=== PATIENT | female | born 1980 ===

== ENCOUNTER 2017-02-27 10:49 | Inpatient (IN) | payer MEDICAID, SELFPAY ==
[2017-02-27] MEDS: Lactated Ringer's 1,000 ML IV SCH (11:10)
[2017-02-27 11:30] VITALS: BMI 36.5
[2017-02-27 11:56] VITALS: BP 128/80; PULSE 94; RESP 18; TEMP 97.8; O2SAT 100
[2017-02-27 12:51] LABS: HEMOGLOBIN 13.4 g/dL (12.0-16.0); MEAN CELL VOLUME 91.4 fl (81.0-99.0); MEAN CORPUSCULAR HEMOGLOBIN 31.8 pg (27.0-31.0); MEAN CORPUSCULAR HGB CONC 34.8 g/dL (33.0-37.0); RBC 4.21 Mil/uL (3.80-5.20); RED CELL DISTRIBUTION WIDTH 14.8 % (11.5-14.5); WHITE BLOOD COUNT 11.4 K/uL (4.8-10.8)
[2017-02-27] MEDS ORDERED: Lactated Ringer's 1,000 ML IV SCH (14:45)
[2017-02-27] MEDS ORDERED: ePHEDrine 50 mg/ml Inj ONE (14:51)
[2017-02-27] MEDS ORDERED: Phenylephrine 10 mg/ml Inj ONE (14:51)
[2017-02-27] MEDS ORDERED: Oxytocin 30 units/LR 500ML 30 U/500 ML BAG IV ONE ×2 (14:56→16:00)
[2017-02-27] MEDS ORDERED: ceFAZolin 2 GM in Sodium Chloride 0.9% 100 ML IVPB ONE (15:00)
--- NOTE | 2017-02-27 15:22 | OBADHP ---
Datetime: 02/27/2017 14:11 IP Chief Complaint Other: Macrosomia Admit Comment, IP Provider: 36 yo G1 at 39+3 wks w/ EDC 03/03/2017 by u/s who was sent from the offi ce of the [facility] for induction for macrosomia. The estimated weight 2 weeks ago was 8#12. THis is complicated by an early elevated 1 hr glucola . Pt has had 2 nl 3 hr GTTs. Pt also has a placental chorioangioma. Pt speaks [place]. Kylie Hurley RN translated. PMH: Healthy PSH: None All: NKDA Soc hx: Pt denies tobacco, alcohol, and illicit drug use Family hx: MGM-DM Subsorter hx: reg periods, denies STDs, denies any abn paps PE: AFVSS Gen'l: pt appears comfortable lying in bed Abd: soft, NT, gravid Ext: NT A/P: 36 yo G1 at 39+3 wks w/ suspected macrosomia Discussed risks of shoulder dystocia, ie, brachial plexus injury, Pt consented for section. All questions answered. Will proceed w/ cesrean section. Extremities - PN: Normal Abdomen - PN: Normal General - PN: Normal FHR - Baseline A Provider: 130 Vital Signs Provider: Reviewed NICHD Variability Prov Fetus A: Moderate 6-25bpm NICHD Accel Fetus A IP Provider: 15X15 FHR Category Provider Fetus A: Category I NICHD Decel Fetus A IP Provider: None Genitourinary Exam: Not Done IP Adm Impression: Term, intrauterine IP Admit Plan: Initiate Section protocol
--- NOTE | 2017-02-27 16:03 | DELATT ---
Datetime: 02/27/2017 11:10 Del Note Departure Status: Nursery Del Note Time: 40 Del Note Status: FT female, LGA, PCS. ABG 05/09. Del Note Reason for Attend Other: PCS, macrosomia. Del Note Interventions: Assessment; Stimulation; Drying Del Note Reason for Attending: Section HENRIQUE/NICU Del Atten Note Adm
--- NOTE | 2017-02-27 16:05 | NBADN ---
Datetime: 02/27/2017 16:03 Nsy Prov Gen Appearance: Within Normal Limits Nsy Prov Gen Appearance: Within Normal Limits Nsy Prov Skin: Within Normal Limits Nsy Prov Neuro: Normal Tone; [place]; Grasp; Root; Suck Nsy Prov Musculoskeletal: Within Normal Limits; Full Range of Motion; Spontaneous Movement All Extre mities; Intact Clavicles; Clavicles without Crepitus; Gluteal Folds Symmetrical; Spine Within Normal Limits; No Sacral Dimple/Cyst Nsy Prov Head: Normal Fontanelles; Normocephalic; Sutures WNL Nsy Prov EENT: Mouth Within Normal Limits; Ears Within Normal Limits; Eyes Within Normal Limits; Eye s Red Reflex Bilaterally; Nose Within Normal Limits; Face Within Normal Limits Nsy Prov Cardiovascular: Within Normal Limits; Normal Pulses Nsy Prov Respiratory: Within Normal Limits Nsy Prov GI: Within Normal Limits; Soft; Normal Liver; Non Palpable Spleen; Patent Anus Nsy Prov Umbilicus: Within Normal Limits; Three Vessel Cord Nsy Prov : Normal Female Genitalia Nsy Prov Impression: Healthy Term ; Vital Signs Appropriate; Bonding Appropriately; Voiding a nd Stooling Nsy Prov Plan: Continue [place] [facility] Nsy Prov Impression/Plan Details: FT female, LGA, PCS. Datetime: 02/27/2017 11:10 Mother's Rule Inc Maternal Age: Age >=35 at SUSIE not specified Mother's Rule Thalassemia: Thalassemia History not specified Mother's Rule Neural Tube Defect: Neural Tube Defect History not specified Mother's Rule Congenital Heart: Congenital Heart Defect not specified Mother's Rule Down Syndrome: Down Syndrome History not specified Mother's Rule Wisam-Sachs: Wisam-Sachs History not specified Mother's Rule Vincenzo: Vincenzo History not specified Mother's Rule Familial Dysauto: Familial Dysautonomia History not specified Mother's Rule Sickle Cell: Sickle Cell Disease/Trait History not specified Mother's Rule Hemophilia: Hemophilia/Blood Disorder History not specified Mother's Rule Muscular Dystrophy: Muscular Dystrophy History not specified Mother's Rule Cystic Fibrosis: Cystic Fibrosis History not specified Mother's Rule Cascade's Chor: Cascade's Chorea History not specified Mother's Rule Mental Retardation: Mental Retardation/Autism History not specified Mother's Rule Fragile X: Fragile X Testing History not specified Mother's Rule Oth Inherited DO: Other Inherited/Chromosomal Disorders not specified Mother's Rule Maternal Metabolic: Maternal Metabolic History not specified Mother's Rule FOB Defects: Pt Father or FOB Defect History not specified Mother's Rule Hx Stillborn MBL: Loss/Stillborn History not specified Mother's Rule Other Genetic Hx: Other Genetic History not specified Mother's Rule Drugs/Medications: Drugs/Medications History not specified Mother's Rule Gonorrhea: Gonorrhea History Not Specified Mother's Rule Chlamydia: Chlamydia History not specified Mother's Rule Syphilis: Syphilis History not specified Mother's Rule HIV/AIDS Exp: HIV/Aids Exposure not specified Mother's Rule HPV: Human Papillomavirus History not specified Mother's Rule Genital Herpes: Genital Herpes not specified Mother's Rule TB: Tuberculosis History not specified Mother's Rule Hepatitis: Hepatitis History Not Specified Mother's Rule Rash or Viral Ill: Rash or Viral Illness History not specified Mother's Rule Diabetes: Diabetes History not specified Mother's Rule Hypertension MBL: History of Hypertension Not Specified Mother's Rule Heart Disease: Heart Disease History not specified Mother's Rule Autoimmune: Autoimmune Disorder History not specified Mother's Rule Kidney Disease: History of Kidney Disease/UTI not specified Mother's Rule Neurologic: Neurologic/Epilepsy Disorders not specified Mother's Rule Psych Disorders: Psychiatric Disorder History not specified Mother's Rule Depression/PP Dep: Depression/ Depression History not specified Mother's Rule Hepaitis/tLiver: History of Hepatitis/Liver Disease not specified Mother's Rule Varicos/Phlebitis: Varicosities/Phlebitis History Not Specified Mother's Rule Thyroid Dysfunct: Thyroid Dysfunction not specified Mother's Rule Trauma/Violence: Trauma/Violence History Not Specified Mother's Rule Blood Transfusion: Blood Transfusion History not specified Mother's Rule Sensitization: D (Rh) Sensitization not specified Mother's Rule Pulmonary: Pulmonary (Asthma, TB) History not specified Mother's Rule Breast: Breast History not specified Mother's Rule Fence Installer Surgery: Fence Installer Surgery Hx not specified Mother's Rule Hosp/Surgery: Hospitalization/Surgery History not specified Mother's Rule Anesthetic Comp: Anesthetic Complications Hx not specified Mother's Rule Abnormal Pap: Abnormal Pap Smear not specified Mother's Rule Uterine Anomaly: Uterine Anomaly/SHAAN not specified Mother's Rule Infertility: Infertility Not Specified Mother's Rule ART Treatment: ART Treatment History not specified Mother's Rule Other Med Disease: Other Medical Diseases History not specified Mother's Rule Family History: Significant Family History not specified
[2017-02-27] MEDS ORDERED: Erythromycin 0.5% Ophth Oint 1 APPLIC/3.5 G OU ONE (16:06)
[2017-02-27] MEDS ORDERED: Vitamin A/D oint 60G TP PRN (16:06)
[2017-02-27] MEDS ORDERED: Phytonadione 1 mg/0.5 ml Inj (Neonatal) IM ONE (16:06)
[2017-02-27] MEDS ORDERED: Brill Green/Gentian Viol/Profl 0.65 ML SOL TP ONE (16:06)
[2017-02-27] MEDS ORDERED: DiphenhydrAMINE 50 mg/ml Inj IVP PRN ×2 (16:31)
[2017-02-27] MEDS ORDERED: HYDROmorphone 0.5 mg/0.5 ml ISec IVP PRN (16:31)
--- NOTE | 2017-02-27 17:19 | OBDS ---
DELIVERY PERSONNEL Delivery Doctor: Darrion Sidhu MD Scrub Nurse: Rich Sanchez OBT Action Finisher: Romie Patrick RN Anesthesiologist: Helder Cotto MD Resident: NESTOR MATERNAL INFORMATION Medications in Delivery: pITOCIN 30U/500lr Placenta Cultured: Yes Provider Comments: Pre-op dx: 36 yo G1 at 39+3 wks w/ suspected macrosomia Post-op dx: Same Procedure: Primary low transverse section Surgeon: Nahum Cafe Helper: Drs. Josue Weston, PGY-2 Anesthesia: Dr. Cotto Anesthesia: Spinal Findings: Viable female infant delivered through clear fluid at 15:58. Nuchal cord x 1 easily red uced. Apgars 9 and 9. Wt 4330 gms. Nl appearing uterus, tubes and ovaries. Complications: None EBL: 900mL LABOR SUMMARY EDC: 03/03/2017 00:00 No. Babies in Womb: 0 LABOR INFORMATION Onset of Labor: NIL Group B Beta Strep: Negative STAGES OF LABOR Stage 3 hrs: 0 Stage 3 min: 1 CSECTION DELIVERY Primary Indication: Other CSection Urgency: Elective Labor: No Labor CSection Incision: Lower Uterine Transverse BABY A INFORMATION Delivery Date/Time: 02/27/2017 15:58 Method of Delivery: Born in Route : No : N/A Forceps: N/A Vacuum Extraction: N/A Shoulder Dystocia : No SHOULDER DYSTOCIA BABY A Delivery Date/Time: 02/27/2017 15:58 PRESENTATION/POSITION BABY A Presentation: Cephalic PLACENTA INFORMATION BABY A Placenta Delivery Time : 02/27/2017 15:59 Placenta Method of Delivery: Manual Removal Placenta Status: Delivered SCORES BABY A Heart Rate 1 min: >100 bpm Resp Effort 1 min: Good Cry Reflex Irritability 1 min: Cough or Sneeze or Pulls Away Muscle Tone 1 min: Active Motion Color 1 min: Body [place], Extremities Blue SCORE 1 MIN: 9 Heart Rate 5 min: >100 bpm Resp Effort 5 min: Good Cry Reflex Irritability 5 min: Cough or Sneeze or Pulls Away Muscle Tone 5 min: Active Motion Color 5 min: Body [place], Extremities Blue SCORE 5 MIN: 9 INFORMATION BABY A Gestational Age at Delivery: 39.3 Gestational Status: Term Outcome : Liveborn Infant Condition : Stable Infant Sex: Female IDENTIFICATION/MEDS BABY A ID Band Number: [id number] ID Band Location: Left Leg; Left Arm WEIGHT/LENGTH BABY A Infant Birthweight (gms): 4330 Weight (lb): 9 Infant Weight (oz): 9 CORD INFORMATION BABY A No. Cord Vessels: 3 Nuchal Cord : N/A Cord Blood Taken: Yes Suction: None; Mouth ASSESSMENT BABY A Infant Complications: None Physical Findings at Delivery: Within Normal Limits Infant Respirations: Appears Normal Brand Manager/ALS Called : No Care By: Dr. Cuenca Transferred To: [facility]
[2017-02-28 07:32] LABS: BASO % 0.1 % (0.0-2.0); EOS % 0.2 % (0.0-4.0); HEMOGLOBIN 12.3 g/dL (12.0-16.0); LYMPH # 0.9 K/uL (1.0-4.3); LYMPH % 6.2 % (20.0-40.0); MEAN CORPUSCULAR HEMOGLOBIN 32.1 pg (27.0-31.0); MEAN CORPUSCULAR HGB CONC 34.9 g/dL (33.0-37.0); MEAN PLATELET VOLUME 8.6 fl (7.2-11.7); MONO # 0.7 K/uL (0.0-0.8); MONO % 4.5 % (0.0-10.0); NEUT # 13.1 K/uL (1.8-7.0); NRBC % 0.1 % (0.0-0.0); PLATELET COUNT 167 K/uL (130-400); RBC 3.84 Mil/uL (3.80-5.20); RED CELL DISTRIBUTION WIDTH 14.7 % (11.5-14.5); WHITE BLOOD COUNT 14.8 K/uL (4.8-10.8)
[2017-02-28] MEDS: Lactated Ringer's 1,000 ML IV SCH (08:43)
--- NOTE | 2017-02-28 09:32 | OBPPN ---
Datetime: 02/28/2017 05:41 PP Pain Prov: Within normal limits PP Nausea Prov: Denies PP Flatus Prov: Yes PP BM Prov: No PP Breasts Prov: Normal PP Heart Prov: Normal PP Lungs Prov: Normal PP Abdomen/Uterus Prov: Normal PP Lochia Prov: Normal PP Vulva/Perineum Prov: Not Done PP CVA Tenderness Prov: Not Done PP Extremities Prov: Normal PP C/S Incision Prov: Normal PP Progress Prov: Normal PP Impression Prov: Normal progression PP Plan Prov: Continue present management PP Progress Note Prov: 36 y/o now seen and examined at bedside. Patient had uneventful overnig ht. Patient reports mild pelvic pain controlled w/ pain meds. OOB/Ambulating w/o dizziness. Breast /bottle feeding w/o difficulty. Tolerating PO diet well. Lochia is less than menses in volume. Voi ding freely w/ no blood noted. Reports no bowel movement. Denies fevers, chills, n/v/d, CP/SOB, lig htheadedness and calf pain. PE: GEN: A_O, resting comfortably in bed, NAD Lung: CTA B/L, no wheezing, rhonchi, or rales CVS: S1, S2 wnl, RRR Abd: +BS, firm fundus below umbilicus. Incision dressed, dry, clean, and intact. No induration, redness, or fluctuation EXT: no edema, negative Moni's, calves non-tender Assessment: 36 y/o now s/p on 02/27/2017 @ 15:58 tolerating pain w/ medication, kellie erating oral intake, adequate urine output, doing well on POD1. Plan: Percocet 5/325 mg 1-2 tabs PO Q6h prn for mod/severe pain. Ibuprofen 600 mg 1 tab Q6h PO pr n for mild pain. Encourage breast feeding and ambulation. Emigdio Patterson M.D. Garage Supervisor PGY-1 [facility] ADDENDUM: PT seen _ examined by me. tolerated breakfast well Agree w/ above assessment and plan. will d/c panama hat blocker and begin percocet _ motrin d/c arec IP PP Procedures: None Vital Signs Provider PP: Reviewed; Within Normal Limits Vital Signs Provider Details PP: hgb 12.3
[2017-02-28] MEDS ORDERED: Oxycodone/Acetaminophen 5/325 mg Tab PO PRN ×2 (09:36)
[2017-02-28 10:15] LABS: ANISOCYTOSIS SLIGHT; LARGE PLATELETS PRESENT; LYMPHOCYTE 9 % (20-50); MONOCYTE 3 % (0-10); NEUTROPHIL 88 % (42-75); PLATELET ESTIMATE NORMAL (NORMAL); TEARDROP CELLS SLIGHT; TOTAL CELLS COUNTED 100
[2017-02-28 10:16] LABS: OVALOCYTES SLIGHT
[2017-02-28] MEDS ORDERED: Hepatitis B Vaccine PED 10 mcg/0.5 mL Inj IM ONE (21:00)
--- NOTE | 2017-02-28 21:04 | OBDS ---
DELIVERY PERSONNEL Delivery Doctor: Darrion Sidhu MD Scrub Nurse: Rich Sanchez OBT French Drawer: Romie Patrick RN Anesthesiologist: Helder Cotto MD Resident: NESTOR MATERNAL INFORMATION Medications in Delivery: pITOCIN 30U/500lr Placenta Cultured: Yes Provider Comments: Pre-op dx: 36 yo G1 at 39+3 wks w/ suspected macrosomia Post-op dx: Same Procedure: Primary low transverse section Surgeon: Nahum Senior Chemical Process Engineer: Drs. King and Codie Weston, PGY-2 Anesthesiologist: Dr. Cotto Anesthesia: Spinal Findings: Viable female infant delivered through clear fluid at 15:58. Nuchal cord x 1 easily red uced. Apgars 9 and 9. Wt 4330 gms, 9#9. Nl appearing uterus, tubes and ovaries. Complications: None EBL: 900mL LABOR SUMMARY EDC: 03/03/2017 00:00 No. Babies in Womb: 0 LABOR INFORMATION Onset of Labor: NIL Group B Beta Strep: Negative STAGES OF LABOR Stage 3 hrs: 0 Stage 3 min: 1 CSECTION DELIVERY Primary Indication: Other CSection Urgency: Elective Labor: No Labor CSection Incision: Lower Uterine Transverse BABY A INFORMATION Delivery Date/Time: 02/27/2017 15:58 Method of Delivery: Born in Route : No : N/A Forceps: N/A Vacuum Extraction: N/A Shoulder Dystocia : No SHOULDER DYSTOCIA BABY A Infant Delivery Date/Time: 02/27/2017 15:58 PRESENTATION/POSITION BABY A Presentation: Cephalic PLACENTA INFORMATION BABY A Placenta Delivery Time : 02/27/2017 15:59 Placenta Method of Delivery: Manual Removal Placenta Status: Delivered SCORES BABY A Heart Rate 1 min: >100 bpm Resp Effort 1 min: Good Cry Reflex Irritability 1 min: Cough or Sneeze or Pulls Away Muscle Tone 1 min: Active Motion Color 1 min: Body [place], Extremities Blue SCORE 1 MIN: 9 Heart Rate 5 min: >100 bpm Resp Effort 5 min: Good Cry Reflex Irritability 5 min: Cough or Sneeze or Pulls Away Muscle Tone 5 min: Active Motion Color 5 min: Body [place], Extremities Blue SCORE 5 MIN: 9 INFORMATION BABY A Gestational Age at Delivery: 39.3 Gestational Status: Term Outcome : Liveborn Condition : Stable Infant Sex: Female IDENTIFICATION/MEDS BABY A ID Band Number: [id number] ID Band Location: Left Leg; Left Arm WEIGHT/LENGTH BABY A Birthweight (gms): 4330 Weight (lb): 9 Weight (oz): 9 CORD INFORMATION BABY A No. Cord Vessels: 3 Nuchal Cord : N/A Cord Blood Taken: Yes Suction: None; Mouth ASSESSMENT BABY A Complications: None Physical Findings at Delivery: Within Normal Limits Respirations: Appears Normal Bread Dough Mixer/ALS Called : No Infant Care By: Dr. Cuenca Transferred To: Nursery
--- NOTE | 2017-03-01 09:03 | OBPPN ---
Datetime: 03/01/2017 08:59 PP Pain Prov: Within normal limits PP Nausea Prov: Denies PP Flatus Prov: No PP BM Prov: No PP Abdomen/Uterus Prov: Normal PP Lochia Prov: Normal PP C/S Incision Prov: Normal PP Progress Prov: Normal PP Comments Phys Exam Prov: Incision: intact w/ steri strips PP Impression Prov: Normal progression PP Plan Prov: Continue present management PP Progress Note Prov: POD 2 s/p primary c/s for suspected macrosomia Continue current management Vital Signs Provider PP: Reviewed
[2017-03-01] MEDS: Simethicone 80 mg Chewtab PO SCH (21:26)
[2017-03-02] MEDS: Simethicone 80 mg Chewtab PO SCH ×3 (04:45→10:37)
--- NOTE | 2017-03-02 17:58 | OBPPN ---
Datetime: 03/02/2017 16:37 PP Pain Prov: Within normal limits PP Nausea Prov: Denies PP Flatus Prov: Yes PP BM Prov: No PP Breasts Prov: Normal PP Heart Prov: Normal PP Lungs Prov: Normal PP Abdomen/Uterus Prov: Normal PP Lochia Prov: Normal PP Vulva/Perineum Prov: Normal PP CVA Tenderness Prov: Normal PP Extremities Prov: Normal PP C/S Incision Prov: Normal PP Impression Prov: Normal progression PP Plan Prov: Discharge PP Progress Note Prov: This is a 36 y/o, now , was admitted for due to macrosomia. C-s ection performed on 02/27/17 at 15:58 with NO complications. A baby girl was delivered with 39.5 week s GA with a weight of 4330 gr, 9/9. NO post-delivery complications. Pt and baby are feeling OK today with NO complaints. She is breast-feeding the infant with NO difficulties, pt tolerating PO an d has remained afebrile with lochia less than menses. The patient is voiding and ambulating without d ifficulty. PE: Gen: AAO x3, resting comfortably in bed, NAD. Lungs: CTA B/L, No W/R/R. CV: RRR, S1 and S2 present. ABD: BS +, firm fundus below umbilicus. incision is clean, dry and intact. NO induration, erythema or edema. EXT: No edema, neg Moni's sign, calves non-tender. A_P 36 y/o S/P on 02/27/17, tolerating pain with medications, tolerating PO, with hugo wel movement, adequate urine output and NO complications. Pt deemed for discharge. [facility] ADDENDUM: pt seen _ examined by me. Agree with above assessment and plan. Vital Signs Provider PP: Reviewed; Within Normal Limits
--- NOTE | 2017-03-02 18:00 | OBDCSUM ---
Datetime: 03/02/2017 08:58 Discharged to, Provider: Home Follow up at, Provider: Dr Moyer Disch Instr Activity: May Shower Disch Instr Diet: Regular Discharge Instructions, Provider: Routine instructions given Discharge Diagnosis, Provider: Term Delivered Discharge Time: 03/02/2017 11:00 Follow up in weeks, Provider: 1 week Disch Referrals: None Discharge Instruct Comment, Prov: postop Contraception discussed, Prov: Yes Disch Activity Restrictions: No exercising; No lifting; No driving; No sexual activity; Nothing in v agina - [place], tampons, douche Discharge Comment, Provider: - was encouraged. -PNV 1 tab PO OD -Ibuprofen 600 mg PO 1 tab Q6h prn for moderate pain. -Ambulate with caution, vaginal rest for 6 weeks, no heavy lifting, avoid stairs, if excessive ble eding or fever despite Tylenol, go to ER. -F/U with clinic in 1 week. Contraception after Delivery: Undecided
--- NOTE | 2017-03-11 12:29 | PCM.OP ---
Operative Report - Operative Report Date of Surgery/Procedure: 02/27/17 Time of Surgery/Procedure: 15:58 Surgeon: Elizabeth Sidhu Engineer Internship: Drs. Yolis King and Codie Weston Anesthesia/Sedation: Robin Cotto, anesthesia was spinal Pre-Operative Diagnosis: 36 year old G1 39 and three weeks with suspected macrosomia Post-Operative Diagnosis: 36 yo G1 at 39 and three weeks with suspected macrosomia Indication for Surgery: Suspected macrosomia Operative Findings: Viable female delivered through a clear fluid at 15: 58. Nuchal cord x1 reduced. Weight 4330 grams, 9#9. Apgars 9 and 9 at 1 and 5 minutes respectively. NL appearing uterus, tubes, and ovaries. Weight was respectively 4330 grams, or nine pounds nine oz. Normal appearing uterus, tubes and ovary. Procedure/Operation Description: Dr. King was the surgical first assistant and participated for the entire duarion of the case. She helped create exposure. She also helped maintain hemostasis, operated on the side of the patient that was across from her, and assisted with the delivery of the infant by aplying fundal pressure. This case could not have been completed without her assistance. The patient was taken to the operating room where spinal was placed. She was then prepped and draped in the normal sterile fashion in the dorsal supine position with a leftward tilt. The spinal was tested and found to be adequate. A pfannenstiel skin incision was then made with the scalpel and carried through to the underlying layer of fascia with the bovie. The fascia was incised in the midline and the incision was extended laterally with a bovie over a jacob clamp. The inferior aspect of of the fascial incision was then grasped with the Mary clamps, elevated and the underlying rectus muscles were dissected off bluntly. Attention was then turned to the superior aspect of this incision which in a similar fashion was grasped and tented up with the Mary clamps, and the rectus muscles were dissected off bluntly. The rectus muscles were then in the midline and the peritoneum was entered digitally. The peritoneum was extended superiorly and inferiorly with good visualization of the bladder. The bladder blade was inserted and the vesicouterine peritoneum was identified, grasped with the pick-ups, and entered sharply with the Metzenbaum scissors. The incision was then extended laterally and the bladder blade was created digitally. The bladder blade was then re- inserted in the lower uterine segment was incised in a transverse fasion with the scalpel. The uterine incision was extended digitally. The bladder blade was removed and the 's head deliverd atraumatically. The nose and mouth were suctioned with the bulb suction. The cord was clamped and cut, and the was handed off to the waiting veneer manufacturer. Cord blood was collected. The placenta was delivered as the uterus was massaged. The uterine incision was repaired wit 0-Monocryl in a running, locked fashion. A second layer of 0- Monocryl was placed in an imbricating fashion to reinforce the incision and for hemostasis. The abdomen was irrigated and uterus was returned to the abdomen. The gutters were cleared of all clots. The uterine was re-examined and was found to be hemostatic. The peritoneum was closed with 2-0 Chromic. Interrupted suture was used to reapproximate the muscle. The fascia was reapproximated with 0 Vicryl in a running fashion. The subcutaneous fat was irrigated. The space of the fat was closed with a running stitch of 2-0 plain gut suture. 4-0 Monocryl suture was then used to close the skin in a subcuticular fashion. The patient tolerated the procedure well. All counts were correct. The patient was taken to the recovery room in stable condition. Estimated Blood Loss: 900mL Complications: None Discharge & Condition: Patient tolerated the procedure well. The patient was taken to the recovery room in stable condition.
== END 2017-03-02 21:00 | disposition home or self-care (01) | DRG 371 ==
LOC: H.EROB2 10:49 → H.L&D 11:31 → H.OB/GYN 20:30
PROVIDERS: ADMIT Obstetrics & Gynecology; ATTEND Obstetrics & Gynecology
PROC: 10D00Z1 Extraction of Products of Conception, Low, Open Approach (ICD-10-PCS; principal; 2017-02-27)
PROC: 4A1HXCZ Monitoring of Products of Conception, Cardiac Rate, External Approach (ICD-10-PCS; 2017-02-27)
DX: O36.63X0 Maternal care for excessive fetal growth, third trimester, not applicable or unspecified (principal); D26.7 Other benign neoplasm of other parts of uterus; Z37.0 Single live birth; O09.523 Supervision of elderly multigravida, third trimester; O69.81X0 Labor and delivery complicated by cord around neck, without compression, not applicable or unspecified; Z3A.39 39 weeks gestation of pregnancy